=== PATIENT | female | born 1960 | race Caucasian/White ===

== ENCOUNTER 2018-03-02 16:11 | Emergency (ER) | payer OTHER ==
[~2018-03-02] VITALS: Ht 162.6 cm; Wt 81.6 kg
[2018-03-02] MEDS ORDERED: AVAPRO300 MG PO (16:33)
[2018-03-02] MEDS ORDERED: GLIPIZIDE ER10 MG PO (16:33)
[2018-03-02] MEDS ORDERED: ALLOPURINOL100 MG PO (16:33)
[2018-03-02] MEDS ORDERED: METFORMIN HCL1000 MG PO (16:34)
== END 2018-03-03 00:16 | disposition home or self-care (01) ==
LOC: ER 16:11
DX: N39.0 Urinary tract infection, site not specified (principal); N20.0 Calculus of kidney